=== PATIENT | male | born 1935 | race Caucasian/White ===

== ENCOUNTER → 2019-05-13 09:13 | Outpatient (REF) | payer OTHER, SELFPAY | LOC: ANHLAB 09:13 | PROVIDERS: PCP Emergency Medicine; Visit Provider Nurse Practitioner | DX: C44.329 Squamous cell carcinoma of skin of other parts of face (principal) | CPT/HCPCS: 88305; 88331 ==

== ENCOUNTER 2019-11-15 01:20 | Outpatient (CLI) | payer OTHER, SELFPAY ==
[2019-11-15 19:18] LABS: SARS-CoV-2 RNA PCR Negative
== END 2019-11-15 01:21 | disposition home or self-care (01) ==
LOC: ANHCOVIDDT 01:20
PROVIDERS: PCP Emergency Medicine; Visit Provider Internal Medicine Gastroenterology
DX: Z01.812 Encounter for preprocedural laboratory examination (principal); Z20.828 Contact with and (suspected) exposure to other viral communicable diseases
CPT/HCPCS: 87635; C9803; U0003

== ENCOUNTER 2019-11-18 02:03 | Day surgery (SDC) | payer OTHER, SELFPAY ==
[2019-11-14 12:39] VITALS: BMI 30.2
[2019-11-18 08:14] VITALS: BP 122/63; PULSE 82; RESP 20; TEMP 36.5; O2SAT 98
[2019-11-18] MEDS: LACTATED RINGERS 1,000 ML 150 ML IV CONT (08:24)
--- NOTE | 2019-11-18 08:27 | PM.HPGS ---
History of Present Illness History of Present Illness Consent: Risks, benefits, and alternatives have been discussed and questions answered. Patient agrees to proceed with procedure. Chief complaint: Dysphagia Narrative: Trell Amin is a 84 year old W male Referred for EGD and possible esophageal dilatation secondary to a 2 year history of solid food dysphagia. Patient's states this occurs approximately about 2/3 of the time when he is eating. He points to the cervical region and also to the midesophageal region. Patient denies any heartburn indigestion. However he does take Prilosec 20 mg daily he has been on this for a long time but does not recall why they placed him on this. He denies any significant weight loss no fever chills or sweats. No coughing no history of pneumonia. Patient denies smoking no alcohol. No family history of esophageal cancer. [facility] Past Medical History Medical History BPH (benign prostatic hyperplasia) Cataracts, bilateral Diverticulosis Gall bladder disease GERD (gastroesophageal reflux disease) H/O: HTN (hypertension) History of inguinal hernia Hx of hemorrhoids Hypercholesteremia Hypertension Neuropathy Parathyroid adenoma Peripheral neuropathy Tremor Ulcer Surgical History Surgical History History of appendectomy History of cholecystectomy History of colonoscopy History of hernia repair History of inguinal hernia repair x3. History of parathyroid surgery History of throat surgery History of tonsillectomy S/P TURP Family History Family History Sibling Family history of cardiovascular disease Mother Cerebrovascular accident, Onset Age: 83 Father Family history of malignant neoplasm, Onset Age: 76 Family history of malignant neoplasm of bone, Onset Age: 76 Social History Social History Smoking status: Never smoker Alcohol intake: never Gender identity (if verbalized by the patient): Male Meds Home Medications and Allergies Home Medications Medication Instructions Recorded Confirmed Type aspirin 81 mg PO DAILY 03/02/19 11/14/19 History amlodipine 10 mg tablet 10 mg PO DAILY #90 tablet 08/12/19 Rx cyanocobalamin (vitamin B-12) 1,000 mcg PO DAILY 09/03/19 11/14/19 History 1,000 mcg tablet mirabegron 50 mg tablet,extended 50 mg PO DAILY 09/03/19 History release 24 hr omeprazole 20 mg capsule,delayed 20 mg PO AC 09/03/19 History release tamsulosin 0.4 mg capsule 0.4 mg PO DAILY 09/03/19 History amoxicillin 875 mg-potassium 1 tablet PO BID #20 tablet 09/04/19 11/14/19 Rx clavulanate 125 mg tablet primidone 50 mg tablet 100 mg PO BID 09/04/19 History losartan 100 mg PO DAILY 11/14/19 11/14/19 History Allergies Allergy/AdvReac Type Severity Reaction Status Date / Time No Known Allergies Allergy Verified 11/18/19 08:12 Vital Signs Vital Signs - 24 hr 11/18/19 08:14 Temperature 36.5 C Pulse Rate 82 Respiratory Rate 20 Blood Pressure 122/63 Pulse Oximetry 98 Exam Const: Orientation/consciousness: patient oriented x3 Resp: Auscultation: clear to auscultation bilaterally Cardio: Rate: regular rate Rhythm: regular rhythm Heart sounds: no murmurs GI: GI Palp: Yes Soft to palpation, No Tenderness to palpation present (GI), Yes No hepatosplenomegaly present and No Palpable mass present Auscultation: normal bowel sounds Neuro: General: patient oriented x3 and no focal motor deficits Extrem: General: no pedal edema Assessment and Plan Additional Plan EGD with possible esophageal dilatation for evaluation of dysphagia
--- NOTE | 2019-11-18 08:27 | WPDANESEPPF ---
Anes - Initial Pre Proc Eval Procedure: Operation Date: 11/18/19 09:00 Proposed Procedures p Esophagogastroduodenoscopy - Amador Morales MD Date/Time: 11/18/19 08:27 Surgeon: Amador Morales MD Pre Op Diagnosis: Dysphagia Patient Data Age: 84 Gender: M Height: 5 ft 8 in Weight: 96.8 kg Last Vital Signs Temp 97.7 F 11/18/19 08:14 Pulse 82 11/18/19 08:14 Resp 20 11/18/19 08:14 BP 122/63 11/18/19 08:14 Pulse Ox 98 11/18/19 08:14 Allergies Allergy/AdvReac Type Severity Reaction Status Date / Time No Known Allergies Allergy Verified 11/18/19 08:12 Home Medications Medication Instructions Recorded Confirmed Type aspirin 81 mg PO DAILY 03/02/19 11/14/19 History amlodipine 10 mg tablet 10 mg PO DAILY #90 tablet 08/12/19 Rx cyanocobalamin (vitamin B-12) 1,000 mcg PO DAILY 09/03/19 11/14/19 History 1,000 mcg tablet mirabegron 50 mg tablet,extended 50 mg PO DAILY 09/03/19 History release 24 hr omeprazole 20 mg capsule,delayed 20 mg PO AC 09/03/19 History release tamsulosin 0.4 mg capsule 0.4 mg PO DAILY 09/03/19 History amoxicillin 875 mg-potassium 1 tablet PO BID #20 tablet 09/04/19 11/14/19 Rx clavulanate 125 mg tablet primidone 50 mg tablet 100 mg PO BID 09/04/19 History losartan 100 mg PO DAILY 11/14/19 11/14/19 History Patient hx anesthesia problems: none Family hx anesthesia problems: none PMFSH Past Medical History Medical History BPH (benign prostatic hyperplasia) Cataracts, bilateral Diverticulosis Gall bladder disease GERD (gastroesophageal reflux disease) H/O: HTN (hypertension) History of inguinal hernia Hx of hemorrhoids Hypercholesteremia Hypertension Neuropathy Parathyroid adenoma Peripheral neuropathy Tremor Ulcer Surgical History Surgical History History of appendectomy History of cholecystectomy History of colonoscopy History of hernia repair History of inguinal hernia repair x3. History of parathyroid surgery History of throat surgery History of tonsillectomy S/P TURP Family History Family History Sibling Family history of cardiovascular disease Mother Cerebrovascular accident, Onset Age: 83 Father Family history of malignant neoplasm, Onset Age: 76 Family history of malignant neoplasm of bone, Onset Age: 76 Social History Social History Smoking status: Never smoker Alcohol intake: never Gender identity (if verbalized by the patient): Male Anes - Eval Final PreProcedure Day of Procedure 11/18/19 08:27 Patient weight: obese Heart: regular rate and rhythm Lungs: clear to auscultation Airway: Mallampati scale class III Neurological: alert and oriented Last oral intake: >/= 8 hours ASA classification: III Emergent: no Anesthetic plan: proceed Anesthesia type and monitoring: general GIVS and standard monitoring Informed Consent: The patient's anesthetic plan and its attendant risks and benefits were discussed with the patient/family/POA. Questions were solicited and answers provided to the satisfaction of the patient/family/POA.
[2019-11-18 08:40] VITALS: BP 138/90; PULSE 90; RESP 31; O2SAT 95
[2019-11-18 08:50] VITALS: BP 125/76; PULSE 90; RESP 19; O2SAT 95
[2019-11-18 09:00] VITALS: BP 109/68; PULSE 71; RESP 12; O2SAT 100
== END 2019-11-18 09:27 | disposition home or self-care (01) ==
PROVIDERS: PCP Emergency Medicine; Visit Provider Internal Medicine Gastroenterology
PROC: 0DJ08ZZ Inspection of Upper Intestinal Tract, Via Natural or Artificial Opening Endoscopic (ICD-10-PCS; CPT 43235; principal; 2019-11-18 09:00)
DX: R13.19 Other dysphagia (principal); K21.0 Gastro-esophageal reflux disease with esophagitis; K22.2 Esophageal obstruction; K44.9 Diaphragmatic hernia without obstruction or gangrene; I10 Essential (primary) hypertension; E78.00 Pure hypercholesterolemia, unspecified; N40.0 Benign prostatic hyperplasia without lower urinary tract symptoms; G62.9 Polyneuropathy, unspecified
CPT/HCPCS: 43239; 88305; J2001; J2704; J7120

== ENCOUNTER 2020-01-07 00:14 | Outpatient (CLI) | payer OTHER, SELFPAY ==
[2020-01-07 19:01] LABS: SARS-CoV-2 RNA PCR Negative
== END 2020-01-07 00:15 | disposition home or self-care (01) ==
LOC: ANHCOVIDDT 00:14
PROVIDERS: PCP Emergency Medicine; Visit Provider Internal Medicine Gastroenterology
DX: Z01.812 Encounter for preprocedural laboratory examination (principal); Z20.828 Contact with and (suspected) exposure to other viral communicable diseases
CPT/HCPCS: 87635; C9803; U0003

== ENCOUNTER 2020-01-09 00:02 | Day surgery (SDC) | payer OTHER, SELFPAY ==
[2020-01-02 13:14] VITALS: BMI 30.2
--- NOTE | 2020-01-09 07:25 | PM.HPGS ---
History of Present Illness History of Present Illness Consent: Risks, benefits, and alternatives have been discussed and questions answered. Patient agrees to proceed with procedure. Chief complaint: esophageal ulcer Narrative: Trell Amin is a 84 year old W male undergoing EGD with esophageal dilatation. Patient had a recent gastroscopy several months ago was found to have grade 4 ulcerative esophagitis esophageal stricture but this was not dilated secondary to the ulceration. He has been treated with PPI therapy is improved still has this intermittent solid food dysphagia. He is undergoing repeat EGD with probable dilatation PMFSH Past Medical History Medical History BPH (benign prostatic hyperplasia) Cataracts, bilateral Diverticulosis Gall bladder disease GERD (gastroesophageal reflux disease) H/O: HTN (hypertension) History of inguinal hernia Hx of hemorrhoids Hypercholesteremia Hypertension Neuropathy Parathyroid adenoma Peripheral neuropathy Squamous cell carcinoma of skin of left cheek Tremor Ulcer Surgical History Surgical History History of appendectomy History of cholecystectomy History of colonoscopy History of hernia repair History of inguinal hernia repair x3. History of parathyroid surgery History of throat surgery History of tonsillectomy S/P TURP Family History Family History Sibling Family history of cardiovascular disease Mother Cerebrovascular accident, Onset Age: 83 Father Family history of malignant neoplasm, Onset Age: 76 Family history of malignant neoplasm of bone, Onset Age: 76 Social History Social History Smoking status: Never smoker Alcohol intake: never Living arrangements: with family Gender identity (if verbalized by the patient): Male Spiritual care concerns: No Meds Home Medications and Allergies Home Medications Medication Instructions Recorded Confirmed Type aspirin 81 mg PO DAILY 03/02/19 01/02/20 History amlodipine 10 mg tablet 10 mg PO DAILY #90 tablet 08/12/19 01/02/20 Rx omeprazole 20 mg capsule,delayed 20 mg PO AC 09/03/19 01/02/20 History release tamsulosin 0.4 mg capsule 0.4 mg PO DAILY 09/03/19 01/02/20 History primidone 50 mg tablet 100 mg PO BID 09/04/19 01/02/20 History triamcinolone acetonide 0.1 % 1 applic TOPICAL TID #454 gm 11/20/19 01/02/20 Rx topical ointment losartan 100 mg tablet See Rx Instructions PO DAILY #90 12/24/19 01/02/20 Rx tablet Allergies Allergy/AdvReac Type Severity Reaction Status Date / Time No Known Allergies Allergy Verified 01/02/20 13:14 Exam Const: Orientation/consciousness: patient oriented x3 Resp: Auscultation: clear to auscultation bilaterally Cardio: Rate: regular rate Rhythm: regular rhythm Heart sounds: no murmurs GI: GI Palp: Yes Soft to palpation, No Tenderness to palpation present (GI), Yes No hepatosplenomegaly present and No Palpable mass present Auscultation: normal bowel sounds Neuro: General: patient oriented x3 and no focal motor deficits Extrem: General: no pedal edema Assessment and Plan Additional Plan EGD with probable esophageal dilatation
[2020-01-09 07:29] VITALS: BP 152/69; PULSE 87; RESP 18; TEMP 36.5; O2SAT 100; BMI 32.3
--- NOTE | 2020-01-09 07:29 | WPDANESEPPF ---
Anes - Initial Pre Proc Eval Procedure: Operation Date: 01/09/20 08:00 Proposed Procedures p Esophagogastroduodenoscopy - Amador Morales MD Date/Time: 01/09/20 07:29 Surgeon: Amador Morales MD Pre Op Diagnosis: esophageal ulcer Patient Data Age: 84 Gender: M Height: 5 ft 8 in Weight: 90 kg Allergies Allergy/AdvReac Type Severity Reaction Status Date / Time No Known Allergies Allergy Verified 01/09/20 07:28 Home Medications Medication Instructions Recorded Confirmed Type aspirin 81 mg PO DAILY 03/02/19 01/02/20 History amlodipine 10 mg tablet 10 mg PO DAILY #90 tablet 08/12/19 01/02/20 Rx omeprazole 20 mg capsule,delayed 20 mg PO AC 09/03/19 01/02/20 History release tamsulosin 0.4 mg capsule 0.4 mg PO DAILY 09/03/19 01/02/20 History primidone 50 mg tablet 100 mg PO BID 09/04/19 01/02/20 History triamcinolone acetonide 0.1 % 1 applic TOPICAL TID #454 gm 11/20/19 01/02/20 Rx topical ointment losartan 100 mg tablet See Rx Instructions PO DAILY #90 12/24/19 01/02/20 Rx tablet Patient hx anesthesia problems: none Family hx anesthesia problems: none PMFSH Past Medical History Medical History BPH (benign prostatic hyperplasia) Cataracts, bilateral Diverticulosis Gall bladder disease GERD (gastroesophageal reflux disease) H/O: HTN (hypertension) History of inguinal hernia Hx of hemorrhoids Hypercholesteremia Hypertension Neuropathy Parathyroid adenoma Peripheral neuropathy Squamous cell carcinoma of skin of left cheek Tremor Ulcer Surgical History Surgical History History of appendectomy History of cholecystectomy History of colonoscopy History of hernia repair History of inguinal hernia repair x3. History of parathyroid surgery History of throat surgery History of tonsillectomy S/P TURP Family History Family History Sibling Family history of cardiovascular disease Mother Cerebrovascular accident, Onset Age: 83 Father Family history of malignant neoplasm, Onset Age: 76 Family history of malignant neoplasm of bone, Onset Age: 76 Social History Social History Smoking status: Never smoker Alcohol intake: never Living arrangements: with family Gender identity (if verbalized by the patient): Male Spiritual care concerns: No Anes - Eval Final PreProcedure Day of Procedure 01/09/20 07:29 Patient weight: obese Heart: regular rate and rhythm Lungs: clear to auscultation Airway: Mallampati scale class II Neurological: alert and oriented Last oral intake: >/= 8 hours ASA classification: III Emergent: no Anesthetic plan: proceed Anesthesia type and monitoring: general GIVS and standard monitoring Informed Consent: The patient's anesthetic plan and its attendant risks and benefits were discussed with the patient/family/POA. Questions were solicited and answers provided to the satisfaction of the patient/family/POA.
[2020-01-09] MEDS: LACTATED RINGERS 1,000 ML 150 ML IV CONT (07:41)
[2020-01-09 08:16] VITALS: BP 112/68; PULSE 85; RESP 22; O2SAT 95
[2020-01-09 08:26] VITALS: BP 135/68; PULSE 88; RESP 19; O2SAT 96
[2020-01-09 08:36] VITALS: BP 127/76; PULSE 78; RESP 17; O2SAT 95
== END 2020-01-09 08:56 | disposition home or self-care (01) ==
PROVIDERS: PCP Emergency Medicine; Visit Provider Internal Medicine Gastroenterology
PROC: 0DJ08ZZ Inspection of Upper Intestinal Tract, Via Natural or Artificial Opening Endoscopic (ICD-10-PCS; CPT 43235; principal; 2020-01-09 08:00)
DX: K22.2 Esophageal obstruction (principal); K44.9 Diaphragmatic hernia without obstruction or gangrene; K31.9 Disease of stomach and duodenum, unspecified; I10 Essential (primary) hypertension; N40.0 Benign prostatic hyperplasia without lower urinary tract symptoms; K21.9 Gastro-esophageal reflux disease without esophagitis; E78.00 Pure hypercholesterolemia, unspecified; G62.9 Polyneuropathy, unspecified; Z79.82 Long term (current) use of aspirin; E66.9 Obesity, unspecified; Z68.32 Body mass index [BMI] 32.0-32.9, adult
CPT/HCPCS: 43249; 43239; 88305; C1726; J2704; J7120

== ENCOUNTER 2021-08-06 19:24 | Emergency (ER) | payer OTHER, SELFPAY ==
--- NOTE | ~2021-08-06 | XR_ITS ---
XR foot RT min 3V DATE: 08/07/2021 00:15 INDICATION: Right foot pain TECHNIQUE: 4 views COMPARISON: None FINDINGS: There is diffuse osteopenia. 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 Mild posterior plantar calcaneal enthesopathy. Hammertoe deformities. No fracture, dislocation, periosteal reaction or bone destruction is detected. Anterior and posterior tibial, dorsalis pedis and metatarsal artery calcifications are noted. IMPRESSION: Osteopenia Tibiotalar osteoarthritis Calcaneal enthesopathy Arterial calcifications including metatarsal artery calcifications, suggesting diabetes Reviewed, dictated and finalized at location A.
[2021-08-06 19:27] VITALS: BP 151/77; PULSE 98; RESP 20; TEMP 36.7; O2SAT 97
[2021-08-06 23:02] VITALS: BP 143/79; PULSE 88; RESP 17; O2SAT 96
[2021-08-07 00:37] VITALS: BP 136/71; PULSE 81; RESP 17; O2SAT 95
[2021-08-07 00:39] LABS: Basophils Absolute Auto 0.1 K/mm3 (0.0-0.1); Basophils Percent Auto 0.5 % (0.2-1.2); Eosinophils Absolute Auto 0.1 K/mm3 (0-0.3); Eosinophils Percent Auto 0.9 % (0-4.4); Hematocrit 45.6 % (42.0-52.0); Hemoglobin 15.3 g/dL (14.0-18.0); Immature Granulocyte Absolute 0.05 K/mm3 (0.00-0.031); Immature Granulocyte Percent A 0.4 % (0-0.5); Lymphocytes Absolute Auto 1.57 K/mm3 (0.9-3.2); Lymphocytes Percent Auto 12.2 % (18.3-44.2); Mean Corpuscular HGB Conc 33.6 g/dl (32-36); Mean Corpuscular Hemoglobin 32.1 pg (26-34); Mean Corpuscular Volume 95.8 fl (80-100); Mean Platelet Volume 9.3 fl (7.4-10.4); Monocytes Absolute Auto 1.1 K/mm3 (0.1-0.6); Monocytes Percent Auto 8.6 % (2.6-8.5); Neutrophils Percent Auto 77.4 % (45.5-73.1); Platelet Count Result 293 k/mm3 (150-375); Red Blood Count 4.76 M/mm3 (4.6-6.20); Red Cell Distribution Width 13.4 % (11.5-14.5); White Blood Count 12.9 K/mm3 (4.5-10.0)
[2021-08-07 00:50] LABS: Alanine Aminotransferase 33 U/L (6-50); Albumin Level 4.2 g/dL (3.5-5.1); Alkaline Phosphatase 69 U/L (38-126); Anion Gap 10 mmol/L (8-16); Aspartate Amino Transferase 29 U/L (17-59); Blood Urea Nitrogen 16 mg/dL (9-20); Calcium 8.5 mg/dL (8.4-10.2); Carbon Dioxide 21 mmol/L (22-30); Chloride 107 mmol/L (98-107); Estimated CRCL calculation 64 ml/min; Estimated Glomerular Filt Rate > 60; Glucose 117 mg/dL (65-110); Potassium 4.2 mmol/L (3.4-5.0); Sodium 138 mmol/L (137-145)
--- NOTE | 2021-08-07 00:54 | ED.EXTPRO ---
HPI - Extremity Problem General Chief complaint: Extremity Problem,Nontraumatic Stated complaint: ohter Time Seen by Provider: 08/06/21 22:52 Source: patient Mode of arrival: ambulatory History of Present Illness HPI Narrative: 85 year old male presents today with complaints of redness and swelling to right foot that started about 3 days ago. Patient denies fevers, chills, or body aches. States possiblity of hitting his foot a couple days ago. He does have a history of neuropathy. Related Data Home Medications Medication Instructions Recorded Confirmed primidone 50 mg tablet 100 mg PO BID 09/04/19 03/03/21 tamsulosin 0.4 mg capsule 0.4 mg PO QHS 09/02/20 03/03/21 Allergies Allergy/AdvReac Type Severity Reaction Status Date / Time No Known Allergies Allergy Verified 01/09/20 07:28 Review of Systems Review of Systems: CONSTITUTIONAL: Denies fever, chills, or sweats. EYES: Denies visual changes, redness, or discharge. ENT: Denies rhinorrhea, congestion, sore throat, or otalgia. CARDIOVASCULAR: Denies chest pain, palpitations, or edema. RESPIRATORY: Denies cough or dyspnea. GASTROINTESTINAL: Denies abdominal pain, nausea, vomiting, or diarrhea. GENITOURINARY: Denies dysuria or hematuria. SKIN: Redness to right foot with swelling. Denies rash or itching. MUSCULOSKELETAL: Denies back pain, joint pain, or myalgia. NEUROLOGIC: Denies headache, numbness, dizziness, or weakness. PSYCHIATRIC: Denies anxiety or depression. [facility] Past Medical History Medical History BPH (benign prostatic hyperplasia) Cataracts, bilateral Diverticulosis Gall bladder disease GERD (gastroesophageal reflux disease) H/O: HTN (hypertension) History of inguinal hernia Hx of hemorrhoids Hypercholesteremia Hypertension Neuropathy Parathyroid adenoma Peripheral neuropathy Squamous cell carcinoma of skin of left cheek Tremor Ulcer Surgical History Surgical History History of appendectomy History of cholecystectomy History of colonoscopy History of hernia repair History of inguinal hernia repair x3. History of parathyroid surgery History of throat surgery History of tonsillectomy S/P TURP Family History Family History Sibling Family history of cardiovascular disease Mother Cerebrovascular accident, Onset Age: 83 Father Family history of malignant neoplasm, Onset Age: 76 Family history of malignant neoplasm of bone, Onset Age: 76 Sibling , 93 Alzheimer disease Social History Social History Social History: Patient does not drink caffeine or energy drinks. Smoking status: Never smoker Second hand tobacco smoke exposure: No Alcohol intake: never Substance use: never Substance use type: does not use Additional living arrangements comments: Patient is Gender identity (if verbalized by the patient): Male Sexual Orientation (if Verbalized by the Patient): Straight or Heterosexual Spiritual care concerns: No Exam Narrative: GENERAL: Well-appearing, well-nourished, and in no acute distress. HEAD: Normocephalic, atraumatic. EYES: PERRLA and EOMI. ENT: Nares clear, no rhinorrhea or epistaxis. Mucous membranes moist. Oropharynx without tonsillar hypertrophy exudate or other lesions. Bilateral TMs pearly alfaro nonbulging NECK: Supple. No adenopathy or masses. No carotid bruits or JVD CHEST: Clear to auscultation. No respiratory distress. No wheezes rales or rhonchi HEART: Regular rate and rhythm. No murmur heard. Normal peripheral pulses. ABDOMEN: Soft, nontender, nondistended, normal active bowel sounds. EXTREMITIES: Erythema to dorsal aspect of right foot with edema. Area is hot to touch, skin is intact. Normal range of motion. No edema. SKI
[2021-08-07] MEDS: HYDROcodone/acetaminophen (*CRX) 5-325 MG TABLET 1 TAB PO (01:00)
[2021-08-07 02:16] VITALS: BP 128/66; PULSE 79; RESP 18; TEMP 37; O2SAT 95
== END 2021-08-07 02:17 | disposition home or self-care (01) ==
PROVIDERS: Emergency Provider Nurse Practitioner Family; PCP Emergency Medicine
DX: L03.115 Cellulitis of right lower limb (principal); I10 Essential (primary) hypertension; E78.00 Pure hypercholesterolemia, unspecified; G62.9 Polyneuropathy, unspecified; K21.9 Gastro-esophageal reflux disease without esophagitis; N40.0 Benign prostatic hyperplasia without lower urinary tract symptoms; Z85.828 Personal history of other malignant neoplasm of skin
CPT/HCPCS: 36415; 73630; 80053; 85025; 96365; 99284; A9270; J0696

== ENCOUNTER 2022-05-27 05:44 | Inpatient (IN) | payer OTHER, SELFPAY ==
[2022-05-27] VITALS (15 sets, daily range): BP systolic 103–126; BP diastolic 55–77; PULSE 72–101; RESP 14–24; TEMP 35.5–36.3; O2SAT 90–100
--- NOTE | 2022-05-27 | ECG_ITS ---
Measurements Intervals [place] Rate: 73 P: 15 MD: 240 QRS: 126 QRSD: 152 T: 30 QT: 452 QTc: 499 Interpretive Statements SINUS RHYTHM WITH FIRST DEGREE AV BLOCK RIGHT BUNDLE BRANCH BLOCK LEFT POSTERIOR FASCICULAR BLOCK CONSIDER INFERIOR INFARCT, AGE INDETERMINATE ANTERIOR ST ELEVATION MYOCARDIAL INJURY- ACUTE BASELINE WANDER- V4-V6 ABNORMAL ECG NO PREVIOUS ECG AVAILABLE FOR COMPARISON Electronically Signed On 05-27-2022 6:39:11 [employer] by Manuel Tierney D.O.
--- NOTE | 2022-05-27 | ECHO_ITS ---
Patient Info Name: Trell Amin Age: 86 years : 1935 Gender: Male Ht: 68 in Wt: 239 lbs BSA: 2.32 m2 HR: 89 bpm BP: 118 / 77 mmHg Heart Rhythm: Sinus Rhythm Technical Quality: Fair Exam Date: 05/27/2022 9:53 AM Exam Location: [facility] Patient Status: Inpatient Admit Date: 05/27/2022 Staff Ordering Physician: Scott Gan MD Digital Marketing Analyst: Roshni Brand RDCS Attending Provider: Scott Gan MD Referring Physician: Malik MCCRARY; Exam Type: CA echo dop color flow w con Study Info Indications - STEMI Complete two-dimensional, color flow and Doppler transthoracic echocardiogram is performed with contrast to opacify the left ventricle and to improve the deliniation of the left ventricle endocardial borders. Contrast/Agitated Saline Contrast/Ag. Saline: Definity Amount: 2.00 ml Administered By: Roshni Brand [facility] Existing IV Access: Yes IV Access Condition: patent with no signs of infiltration Summary 1. Mild LV enlargement with akinesis of the majority of the anterior wall, antral septal segment and apex. 2. Global LV ejection fraction 30%. 3. Definity contrast used to improve visualization. 4. Mildly enlarged left atrium. 5. No mitral regurgitation, normal-appearing aortic valve. Left Ventricle Left ventricular chamber dimension is mildly enlarged. Left ventricular systolic function is moderately reduced, estimated at 30-35%. The left ventricular diastolic function is grade I diastolic dysfunction. Right Ventricle Right ventricular chamber dimension is normal. Right ventricular systolic function is normal. Left Atria Left atrial chamber dimension is moderately enlarged. Right Atria Right atrial chamber dimension is normal. Aortic Valve The aortic valve is normal. Pulmonic Valve The pulmonic valve is not well visualized. Mitral Valve The mitral valve has normal leaflets. There is no mitral valve regurgitation. Tricuspid Valve The tricuspid valve leaflets are normal. There is mild tricuspid valve regurgitation. Pericardium/Pleural The pericardium appears normal. Aorta The aortic root size at the sinus of Valsalva is normal. Left Ventricular Outflow Tract Name Value Normal LVOT 2D LVOT Diameter 2.07 cm LVOT Doppler LVOT Peak Gradient 4 mmHg LVOT Mean Gradient 2 mmHg LVOT VTI 18.90 cm LVOT VTI/AV VTI Ratio 0.84 LVOT Stroke Volume 63.79 ml LVOT CO 15.12 l/min LVOT CI 6.51 L/min/m2 Pulmonic Valve Name Value Normal PV Doppler PV Peak Gradient 7 mmHg Mitral Valve
--- NOTE | ~2022-05-27 | XR_ITS ---
Portable chest x-ray Comparison: None Clinical History: STEMI Findings: Mild central congestive change and possible minimal interstitial edema. Cardiomediastinal silhouette is mildly prominent. Bones and soft tissues are unremarkable. Impression: Mild central congestive changes with possible minimal interstitial edema. Reviewed, dictated and finalized at [facility]. ION EXAMINER Impression: Mild central congestive changes with possible minimal interstitial edema.
--- NOTE | 2022-05-27 05:56 | ED.GENADULT ---
HPI - General Adult General Chief complaint: Chest Pain Stated complaint: chest pain Time Seen by Provider: 05/27/22 05:54 History of Present Illness HPI narrative: Patient 86-year-old gentleman who presents the emergency department with chief complaint of chest pain patient reports that this evening he started having pain in the midportion of his chest described as a tightness sensation and then reports that he had some dry heaves. Patient states that has no prior history of cardiac disease and was hoping the pain would resolve. Related Data Home Medications Medication Instructions Recorded Confirmed tamsulosin 0.4 mg capsule 0.4 mg PO QHS 09/02/20 03/03/21 Allergies Allergy/AdvReac Type Severity Reaction Status Date / Time No Known Allergies Allergy Verified 03/09/22 13:48 Review of Systems Review of Systems: A 10 system review of systems was completed on the patient and is negative except for what is stated in the HPI. Nursing and ancillary documentation was reviewed. [facility] Past Medical History Medical History (Updated 05/27/22 @ 06:00 by Davey Valles MD) BPH (benign prostatic hyperplasia) Cataracts, bilateral Diverticulosis Gall bladder disease GERD (gastroesophageal reflux disease) H/O: HTN (hypertension) History of inguinal hernia Hx of hemorrhoids Hypercholesteremia Hypertension Neuropathy Parathyroid adenoma Peripheral neuropathy Squamous cell carcinoma of skin of left cheek Tremor Ulcer Surgical History Surgical History History of appendectomy History of cholecystectomy History of colonoscopy History of hernia repair History of inguinal hernia repair x3. History of parathyroid surgery History of throat surgery History of tonsillectomy S/P TURP Family History Family History Sibling Family history of cardiovascular disease Mother Cerebrovascular accident, Onset Age: 83 Father Family history of malignant neoplasm, Onset Age: 76 Family history of malignant neoplasm of bone, Onset Age: 76 Sibling , 93 Alzheimer disease Social History Social History Social History: Patient does not drink caffeine or energy drinks. Smoking status: Never smoker Second hand tobacco smoke exposure: No Alcohol intake: never Substance use: never Substance use type: does not use Living arrangements: with family Additional living arrangements comments: Patient is Occupation/Education: retired Gender identity (if verbalized by the patient): Male Sexual Orientation (if Verbalized by the Patient): Straight or Heterosexual Spiritual care concerns: No Exam Narrative: GENERAL: Well-appearing, well-nourished, and in no acute distress. HEAD: Normocephalic, atraumatic. EYES: PERRLA and EOMI. ENT: Nares clear, no rhinorrhea or epistaxis. Mucous membranes moist. NECK: Supple. CHEST: Clear to auscultation. No respiratory distress. HEART: Regular rate and rhythm. No murmur heard. Normal peripheral pulses. ABDOMEN: Soft, nontender, nondistended, normal active bowel sounds. EXTREMITIES: Normal range of motion. No edema. SKIN: Warm, dry, no rash. NEURO: No focal deficits. Alert and oriented x3. PSYCH: Normal mood and affect. Course Vital Signs Vital signs: Vital Signs Pulse Rate 75 05/27/22 05:46 Respiratory Rate 23 H 05/27/22 05:46 Blood Pressure 126/66 05/27/22 05:46 Pulse Oximetry 100 05/27/22 05:46 Oxygen Delivery Room Air 05/27/22 05:46 Pulse Rate 75 05/27/22 05:46 Respiratory Rate 23 H 05/27/22 05:46 Blood Pressure 126/66 05/27/22 05:46 Pulse Oximetry 100 05/27/22 05:46 Oxygen Delivery Room Air 05/27/22 05:46 Medical Decision Making MDM Narrative Medical decision making narrative: EKG is
[2022-05-27] MEDS: ONDANSETRON INJ 4 MG/2 ML VIAL IV PUSH (06:02)
[2022-05-27] MEDS: HEPARIN SODIUM 5,000 UNITS/ML VIAL 4000 UNITS IV PUSH (06:02)
[2022-05-27] MEDS: TICAGRELOR 90 MG TABLET 180 MG PO (06:03)
[2022-05-27] MEDS: MORPHINE SULFATE (*CRX) 2 MG/ML INJ IV PUSH ×3 (06:15→08:31)
[2022-05-27 06:26] LABS: Basophils Absolute Auto 0.1 K/mm3 (0.0-0.1); Basophils Percent Auto 0.8 % (0.2-1.2); Eosinophils Absolute Auto 0.2 K/mm3 (0-0.3); Hematocrit 50.2 % (42.0-52.0); Hemoglobin 17.1 g/dL (14.0-18.0); Immature Granulocyte Absolute 0.04 K/mm3 (0.00-0.031); Immature Granulocyte Percent A 0.4 % (0-0.5); Lymphocytes Absolute Auto 1.94 K/mm3 (0.9-3.2); Mean Corpuscular HGB Conc 34.1 g/dl (32-36); Mean Corpuscular Hemoglobin 32.4 pg (26-34); Mean Corpuscular Volume 95.3 fl (80-100); Mean Platelet Volume 10.2 fl (7.4-10.4); Monocytes Absolute Auto 0.6 K/mm3 (0.1-0.6); Monocytes Percent Auto 6.5 % (2.6-8.5); Neutrophils Absolute Auto 6.8 K/mm3 (1.3-6.7); Neutrophils Percent Auto 70.3 % (45.5-73.1); Platelet Count Result 300 k/mm3 (150-375); Red Blood Count 5.27 M/mm3 (4.6-6.20); White Blood Count 9.7 K/mm3 (4.5-10.0)
[2022-05-27 06:30] LABS: INR 1.1; Prothrombin Time 13.4 Seconds (11.1-14.7)
[2022-05-27 06:31] LABS: Alanine Aminotransferase 47 U/L (6-50); Albumin Level 4.5 g/dL (3.5-5.1); Alkaline Phosphatase 87 U/L (38-126); Anion Gap 11 mmol/L (8-16); Aspartate Amino Transferase 37 U/L (17-59); Bilirubin,Total 0.8 mg/dL (0.2-1.3); Blood Urea Nitrogen 12 mg/dL (9-20); Calcium 8.9 mg/dL (8.4-10.2); Carbon Dioxide 22 mmol/L (22-30); Chloride 104 mmol/L (98-107); Estimated CRCL calculation 68 ml/min; Estimated Glomerular Filt Rate > 60; Glucose 208 mg/dL (65-110); Lipase 28 U/L (23-300); Partial Thromboplastin Time 26.3 SECONDS (22.3-36.8); Potassium 3.2 mmol/L (3.4-5.0); Sodium 137 mmol/L (137-145)
[2022-05-27 06:32] LABS: Cholesterol 195 mg/dL (0-200); HDL Direct 53 mg/dL; Triglycerides 191 mg/dL (<150)
[2022-05-27 06:41] LABS: Troponin I 0.034 ng/mL (0.000-0.034)
[2022-05-27 06:42] LABS: LDL Cholesterol Direct 100 mg/dL
--- NOTE | 2022-05-27 07:59 | ECG_ITS ---
Measurements Intervals [place] Rate: 83 P: 229 ME: 145 QRS: -83 QRSD: 190 T: 34 QT: 488 QTc: 574 Interpretive Statements SINUS RHYTHM WITH FIRST DEGREE AV BLOCK ATRIAL PREMATURE COMPLEXES RIGHT BUNDLE BRANCH BLOCK ANTERIOR ST ELEVATION MYOCARDIAL INFARCT, ACUTE HIGH LATERAL ST EELVATION MYOCARDIAL INFARCT, ACUTE COMPARED TO ECG 05/27/2022 05:47:10 NO SIGNIFICANT CHANGES Electronically Signed On 05-27-2022 8:47:45 SENIOR MAINFRAME PROGRAMMER ANALYST by Manuel Tierney D.O.
[2022-05-27] MEDS: NITROGLYCERIN/D5W 200 MCG/ML 50 MG/250 ML BTL IV CONT (08:23)
--- NOTE | 2022-05-27 08:26 | ADMGEN ---
This patient, Trell Amin, was admitted to Intensive Care Unit-6 at 0815. Patient/family oriented to hospital policies and general routines including ID bracelet, bed and alarms, visiting hours, pain management, procedures, bathroom and other care routines, personal items, smoking policy, room service/diet, and visiting hours. Information on how to activate the Rapid Response Team has been discussed. Patient/Family are encouraged to report perceived risks to care and to ask questions if they do not understand what they are told or what they should do.
--- NOTE | 2022-05-27 08:35 | WPDCNINT ---
Assessment and Plan Assessment and plan (1) Acute ST elevation myocardial infarction: Code(s): I21.3 - ST elevation (STEMI) myocardial infarction of unspecified site Status: Acute Assessment and Plan: acute anterior STEMI status post PCI with sub optimal results patient still having chest pain nitroglycerin infusion and p.r.n. morphine for pain aspirin Brilinta Crestor Coreg and was started heparin infusion cardiology is going to transfer patient to tertiary facility for high risk PCI. patient has a bed at [facility] and will be transferred as soon as possible. arterial sheath will be left in place for now Defer echocardiogram ICU telemetry monitoring (2) Dementia: Qualifiers: Alzheimer's disease onset: other onset Dementia behavioral disturbance: without behavioral disturbance Dementia type: Alzheimer's disease Qualified Code(s): G30.8 - Other Alzheimer's disease; F02.80 - Dementia in other diseases classified elsewhere without behavioral disturbance Code(s): F03.90 - Unspecified dementia, unspecified severity, without behavioral disturbance, psychotic disturbance, mood disturbance, and anxiety Status: Acute Assessment and Plan: continue donepezil (3) Parkinsons disease: Code(s): G20 - Parkinson's disease Status: Acute Assessment and Plan: continue primidone (4) Hypertension: Qualifiers: Hypertension type: essential hypertension Qualified Code(s): I10 - Essential (primary) hypertension Code(s): I10 - Essential (primary) hypertension Status: Acute Assessment and Plan: patient has been started on Coreg and losartan he is also on nitroglycerin infusion (5) Hypercholesteremia: Code(s): E78.00 - Pure hypercholesterolemia, unspecified Status: Acute Assessment and Plan: Crestor Plan DVT prophylaxis - currently on heparin drip Stress ulcer prophylaxis - PPI Nutrition - NPO Code Status - Full Code Case discussed with Cardiology Total Critical Care Time - 35 minutes Due to a high probability of clinically significant, life threatening deterioration, the patient required my highest level of preparedness to intervene emergently and I personally spent this critical care time directly and personally managing the patient. This critical care time included obtaining a history; examining the patient; pulse oximetry; ordering and review of studies; arranging urgent treatment with development of a management plan; evaluation of patient's response to treatment; frequent reassessment; and discussions with other providers. It was exclusive of separately billable procedures and treating other patients and teaching time. Please see Assessment and Plan section and the rest of the note for further information on patient assessment and treatment Open Developer Operator Consult Note Consult date: 05/27/22 Reason for consult: STEMI HPI: Trell Amin is a 86 year old male with past medical history of hypertension and hyperlipidemia who presented to ER with chief complaint of chest pain. Patient states that chest pain has been going on and off for last many days but mostly resolved by itself. This morning when he was sitting in the chair the chest pain reoccurred and he could not bear it anymore hence presented to ER. he states pain is in the middle of the chest, 7/10 severe, achy in quality, radiated to both shoulders. he denied any fever cough nausea vomiting palpitations dizziness lightheadedness or any other related complaints. he denies any PND orthopnea dyspnea on exertion lower extremity swelling. he presented to ER and was diagnosed with ST segment elevation FL and was taken to cardiac catheterization lab. Patient underwent cardiac catheterization where he had a complicated LAD occlusion which is only partially treated. patient now admitted to ICU. He continues to have chest pain and states his pain is
--- NOTE | 2022-05-27 08:43 | PM.IMHP ---
H&P: HPI History of Present Illness Date/Time: 05/27/22 08:43 Chief Complaint: chest pain Narrative: this is an 86-year-old man who is unknown to me prior to this emergency. He comes in to [facility] emergency room early this morning with chest pain that began about 2 hours before presentation. He has no previous cardiac history. ECG shows sinus rhythm with right bundle branch block and acute anterior wall WI. In this setting STEMI was activated. The records indicate that the patient has hypertension dyslipidemia and dementia. He is reporting mild ongoing chest pain as he has been brought into the cardiac catheterization lab. There is no time to take further history. Review of Systems Review of Systems: ROS unobtainable: Yes unobtainable due to medical condition PMFSH Past Medical History Medical History BPH (benign prostatic hyperplasia) Cataracts, bilateral Diverticulosis Gall bladder disease GERD (gastroesophageal reflux disease) H/O: HTN (hypertension) History of inguinal hernia Hx of hemorrhoids Hypercholesteremia Hypertension Neuropathy Parathyroid adenoma Peripheral neuropathy Squamous cell carcinoma of skin of left cheek Tremor Ulcer Surgical History Surgical History History of appendectomy History of cholecystectomy History of colonoscopy History of hernia repair History of inguinal hernia repair x3. History of parathyroid surgery History of throat surgery History of tonsillectomy S/P TURP Family History Family History Sibling Family history of cardiovascular disease Mother Cerebrovascular accident, Onset Age: 83 Father Family history of malignant neoplasm, Onset Age: 76 Family history of malignant neoplasm of bone, Onset Age: 76 Sibling , 93 Alzheimer disease Social History Social History Social History: Patient does not drink caffeine or energy drinks. Smoking status: Never smoker Second hand tobacco smoke exposure: No Alcohol intake: never Substance use: never Substance use type: does not use Living arrangements: with family Additional living arrangements comments: Patient is Occupation/Education: retired Gender identity (if verbalized by the patient): Male Sexual Orientation (if Verbalized by the Patient): Straight or Heterosexual Spiritual care concerns: No Meds Home Medications and Allergies Home Medications Medication Instructions Recorded Confirmed Type tamsulosin 0.4 mg capsule 0.4 mg PO QHS 09/02/20 03/03/21 History amlodipine 10 mg tablet 10 mg PO DAILY 05/27/22 05/27/22 History donepezil 10 mg tablet 10 mg PO DAILY 05/27/22 05/27/22 History losartan 100 mg tablet 50 mg PO DAILY 05/27/22 05/27/22 History primidone 50 mg tablet 50 mg PO Q12H 05/27/22 05/27/22 History Allergies Allergy/AdvReac Type Severity Reaction Status Date / Time No Known Allergies Allergy Verified 03/09/22 13:48 Vital Signs Vital Signs - 24 hr 05/27/22 05:46 05/27/22 06:07 05/27/22 06:00 Pulse Rate 75 75 Respiratory Rate 23 H 18 Blood Pressure 126/66 120/73 Pulse Oximetry 100 100 100 Oxygen Delivery Room Air Nasal Cannula Oxygen Flow Rate 2 05/27/22 06:15 05/27/22 08:31 Pulse Rate 72 83 Respiratory Rate 15 Blood Pressure 122/71 117/73 Pulse Oximetry 100 Oxygen Delivery Oxygen Flow Rate Exam Const: General: in distress and uncomfortable Other: Elderly man reporting [id number] chest pain HENMT: Mouth: Yes moist mucous membranes Eyes: Sclera: sclerae normal Pupils: Equal, round and reactive pupils present Neck: Neck: supple and no JVD Other: carotid pulses are intact no bruits are audible over the neck Resp: Effort & Inspection: normal respiratory effort Auscul
--- NOTE | 2022-05-27 08:46 | WPDCARDPROC ---
Cardiac Cath Procedure Note Date of procedure:: 05/27/22 Performing physician:: Scott Gan MD Indication:: ST-elevation UT Brief clinical history:: this is an 86-year-old man presenting with chest pain about 2 hours prior to presentation. He has hypertension and dyslipidemia. No previous for coronary history. ST segment anterior wall UT was found on presenting ECG. He is being brought for emergency angiography in this setting Procedure Procedure performed:: emergency coronary angiography emergency PTCA of LAD Sedation/Medication given:: fentanyl 25 mg Versed 2 mg case start time 6:55 a.m. case end time 7:47 a.m. sedation provided by Mayuri Barker RN. trained observer Access site:: right femoral artery Estimated blood loss:: 50 cc Procedure note:: patient was brought to the cardiac catheterization lab in the emergency setting described above the right femoral triangle was prepared and draped in the normal fashion. Anesthesia was given 1% lidocaine infiltrated locally. Using modified Seldinger technique a 6 Somali sheath was placed into the right femoral artery after this I used a 5 Somali JR4 catheter to engage and inject the right coronary artery. I then used a 6 Somali CLS 3.5 guiding catheter to engage and inject the left coronary artery in multiple projections. Following this the cineangiograms were reviewed and PCI of the LAD was recommended and carried out as detailed below. Patient had received aspirin and 180 mg of Brilinta in the emergency room. Procedural anticoagulation was provided with bolus and infusion of bivalirudin. Following intervention the right groin sheath was sutured into position he was taken to the ICU in a critical condition. He was systemically heparinized a started on intravenous nitroglycerin. Findings:: Central aortic pressure is 146/84. The left ventricle was not entered during this procedure the left main coronary artery is moderate caliber and appears to be patent there is left main and proximal left coronary calcification identified the left anterior descending is a moderate caliber artery extending down to the apex. The proximal/ ostial segment of the LAD has a 95% stenosis that is relatively discrete. The mid to distal portion of the LAD is 1 100% occluded angiographic appearance is typical of an abrupt acute thrombotic occlusion. The circumflex is a moderate caliber artery giving rise to marginal branches. The circumflex has mild diffuse luminal irregularities but no angiographically significant lesions are seen. Right coronary artery is moderate caliber and dominant to the posterior circulation. Right coronary artery also has diffuse mild luminal irregularities with at atherosclerotic plaquing but no flow-limiting disease is identified. Intervention: The LAD was wired using a 0.014 BMW coronary guidewire. I used a 3.5 x 20 mm PTCA balloon to traverse the distal /mid to distal occlusion and a series of inflations were made restoring PABLO 2 flow into the LAD down to the apex. Distal to the site of occlusion the remainder of the LAD done at the apex is angiographically quite small. I then attempted to deliver a stent to this lesion but the stent would not track through the high-grade proximal segment of the artery this stent was withdrawn. It was clear that the ostial disease which was very tight would not permit the stent device to traverse more distally. I then used a 3.0 x 15 mm balloon to dilate the ostial segment of the LAD. A inserting this balloon into the LAD ostium was somewhat difficult as the LAD had an angulated takeoff from the left main there appeared to be a moderate amount of calcium. With deep running the guide I was able to dilate this lesion with the above-described balloon. Three inflations were made at nominal pressures resulting in improved angiographic appearance but at least 60% resume residual stenosis in the LAD at the ostium.
[2022-05-27] MEDS: POTASSIUM CHLORIDE 20 MEQ TABLET 40 MEQ PO (08:54)
[2022-05-27] MEDS: LOSARTAN POTASSIUM 25 MG TABLET PO (08:55)
[2022-05-27] MEDS: ROSUVASTATIN 10 MG TABLET 20 MG PO (08:55)
[2022-05-27] MEDS: HEPARIN SOD/D5W 100 UNITS/ML 25,000 UNITS/250 ML BAG 10 UNITS IV CONT (08:55)
[2022-05-27] MEDS: carvediloL 6.25 MG TABLET PO (08:56)
[2022-05-27] MEDS: PANTOPRAZOLE SODIUM IV 40 MG VIAL IV PUSH (08:58)
[2022-05-27] MEDS: KCL 20MEQ/0.9% SOD CHL 1,000 ML 100 ML IV CONT (09:06)
[2022-05-27] MEDS: TAMSULOSIN HCL 0.4 MG CAPSULE PO (09:06)
[2022-05-27 09:09] LABS: INR 2.5; Prothrombin Time 25.9 Seconds (11.1-14.7)
[2022-05-27 09:10] LABS: Partial Thromboplastin Time 80.5 SECONDS (22.3-36.8)
[2022-05-27 09:36] LABS: NT Pro B Type Natriuretic Pept 136 pg/mL (19.9-100)
--- NOTE | 2022-05-27 10:16 | PC.NURSE ---
Cardiopulmonary Rehab Services flyer was given to patient.
[2022-05-27] MEDS: PERFLUTREN LIPID MICROSPHERES 1.5 ML VIAL DILUTED TO 10 ML TOTAL VOLUME IV PUSH (10:30)
[2022-05-27 11:57] LABS: Glucose Point of Care 151 mg/dl (65-105)
--- NOTE | 2022-05-27 14:07 | PC.NURSE ---
1407--Ritu LANDRUM at [facility] called and updated that patient returned to [place] ER in respiratory distress. [facility] nurses station number is [phone]. Pt. is going to room 592A.
--- NOTE | 2022-05-27 15:08 | PC.NURSE ---
1335-Pt. transferred out of room with [facility] on stretcher on 6LNC. VSS. Transfer paperwork sent with ems. Patient stable upon discharge.
--- NOTE | 2022-06-22 07:12 | PM.TDS ---
Transfer Discharge Sum: Prov Provider Date of admission: 05/27/22 05:56 Primary care physician: Scott Ribera MD Admitting clinician: Scott Gan MD Consults: 05/27/22 Consult to Physician Routine Comment: Consulting Provider: Brett Dave Reason for consultation: icu admission Has provider been notified: Yes 05/27/22 05:52 Consult to Physician Routine Comment: Consulting Provider: Scott Gan on call/MD group to consult: Science Instructor health management consultant Reason for consultation: Stemi Has provider been notified: Yes 05/27/22 07:59 Cardiopulmonary Rehabilitation Consult Routine Comment: Consult Plan: Evaluate for Eligibility Attending physician on discharge: Scott Gan Discharging clinician: Scott Gan Anticipated date of transfer: 05/27/22 Receiving physician/facility: [facility] DS: Admitting Diagnosis Discharge Date 05/27/[address] segment elevation ME DS: Discharge Diagnosis Discharge Diagnosis (1) Acute ST elevation myocardial infarction: Code(s): I21.3 - ST elevation (STEMI) myocardial infarction of unspecified site Status: Acute Assessment and Plan: 86-year-old patient presenting with chest pain and acute anterior ST segment elevation ME. patient underwent partially successful PCI in the trestle mainternance laborer at [facility] but with inability to successfully stent to the target lesion in the mid LAD because of high-grade ostial stenosis which could not be successfully treated this trestle mainternance laborer. Plan Transfer to [facility] for more advanced PCI of the ostial LAD disease as well as the site of the target lesion in the midportion of the vessel Transfer Discharge Sum: Med Medications Active and Home Medications: Home Medications tamsulosin 0.4 mg capsule 0.4 mg PO QHS 09/02/20 [History Confirmed 05/27/22] amlodipine 10 mg tablet 10 mg PO DAILY 05/27/22 [History Confirmed 05/27/22] primidone 50 mg tablet 50 mg PO Q12H 05/27/22 [History Confirmed 05/27/22] donepezil 10 mg tablet See Rx Instructions .Route .COMPLEX #90 tabs 06/09/22 [Rx] losartan 100 mg tablet See Rx Instructions .Route .COMPLEX #90 tabs 06/09/22 [Rx] Transfer Discharge Sum: Hosp Hospital Course Hospital course: Trell Amin is a 86 year old male who presented to [facility] on the date of admission with chest pain. Electrocardiogram showed sinus rhythm with right bundle branch block and acute anterior wall ME. he was brought emergently to the cardiac catheterization lab where he was found to have a culprit lesion being total occlusion of the mid segment of the left anterior descending. Patient also had a high-grade ostial LAD stenosis and and angulated takeoff of the LAD from the left main coronary which was also somewhat calcified. The anterior descending was easily wired through the occlusion down to the apex. The target lesion was then dilated with a balloon angioplasty restoring flow into the LAD down to the apex. The target lesion could not be stented to complete satisfactory intervention as there was high-grade ostial disease in the LAD that prohibited advancing a stent to the target area. Following that the ostial segment of the LAD was balloon dilated which was done with some difficulty because of angulated takeoff of the LAD as well as difficulty getting balloons to track into the vessel for these reasons. The high-grade ostial lesion was improved to about 60% residual stenosis this was however not felt to be a acceptable final angiographic result. For that reason the patient was systemically heparinized the sheath was left into position he was transferred to [facility] where more aggressive/advanced PCI capabilities will be used to attempt to complete this intervention. Time Spent with Patient Time attestation: Total time spent providing and/or coordinating transfe
== END 2022-05-27 13:35 | disposition short-term general hospital (02) | DRG 251 ==
LOC: ANHED 07:25 → ANHICU 08:05
PROVIDERS: Internal Medicine; Admitting Provider Specialist; Emergency Provider Emergency Medicine; PCP Emergency Medicine; Visit Provider Specialist
PROC: 02703ZZ Dilation of Coronary Artery, One Artery, Percutaneous Approach (ICD-10-PCS; CPT 92920; 2022-05-27 06:40)
PROC: 02703ZZ Dilation of Coronary Artery, One Artery, Percutaneous Approach (ICD-10-PCS; CPT 93454; 2022-05-27 06:40)
DX: I21.02 ST elevation (STEMI) myocardial infarction involving left anterior descending coronary artery (principal); I10 Essential (primary) hypertension; E78.5 Hyperlipidemia, unspecified; N40.0 Benign prostatic hyperplasia without lower urinary tract symptoms; K57.90 Diverticulosis of intestine, part unspecified, without perforation or abscess without bleeding; K21.9 Gastro-esophageal reflux disease without esophagitis; G62.9 Polyneuropathy, unspecified; E78.00 Pure hypercholesterolemia, unspecified; G30.8 Other Alzheimer's disease; F02.80 Dementia in other diseases classified elsewhere, unspecified severity, without behavioral disturbance, psychotic disturbance, mood disturbance, and anxiety; G20 Parkinson's disease; Z85.828 Personal history of other malignant neoplasm of skin; Z90.49 Acquired absence of other specified parts of digestive tract
CPT/HCPCS: 36415; 71045; 80053; 80061; 82948; 83690; 83880; 84484; 85025; 85610; 85730; 86850; 86900; 86901; 92920; 93005; 93454; 99285; A9270; C1725; C1769; C1887; C1894; C8929; C9113; J0583; J1200; J1644; J2250; J2270; J2405; J3010; J3480; J7040; Q9957

== ENCOUNTER 2022-05-27 14:00 | Emergency (ER) | payer OTHER, SELFPAY ==
--- NOTE | ~2022-05-27 | XR_ITS ---
EXAMINATION: XR chest ET placement DATE: 05/27/2022 14:22 INDICATION: Intubation. TECHNIQUE: A single frontal view of the chest was obtained. COMPARISON: Chest one view 05/27/2022 FINDINGS: The left lateral costophrenic angle is excluded. There are interstitial opacities and hazy airspace opacities throughout the lungs bilaterally. No pneumothorax. The heart size is normal. The e ndotracheal tube tip is 3.2 cm above the joey. The nasogastric tube tip is in the stomach. IMPRESSION: 1. Worsened diffuse lung disease, likely moderate pulmonary edema. Reviewed, dictated and finalized at location A. CIATE PROFESSOR OF BIOSTATISTICS
[2022-05-27 14:00] VITALS: BP 148/119; PULSE 112; RESP 14; O2SAT 99
--- NOTE | 2022-05-27 14:03 | PC.NURSE ---
1403 20mg Etomidate given IVP 1403 100mg succinylcholine given IVP 1406 ET tube inserted, 24cm at the lip, 7.5 size ET tube 16FR NG tube placed in the right nare, 70cm depth.
[2022-05-27 14:09] VITALS: BP 126/85; PULSE 122; RESP 12; O2SAT 99
[2022-05-27 14:15] VITALS: BP 144/98; PULSE 116; PULSE 120; RESP 17; RESP 19; O2SAT 99
[2022-05-27] MEDS: PROPOFOL IV EMULSION 100 ML 10.19 MG IV CONT (14:15)
--- NOTE | 2022-05-27 14:21 | ED.GENADULT ---
HPI - General Adult General Chief complaint: Chest Pain Stated complaint: Resp distress Time Seen by Provider: 05/27/22 14:13 History of Present Illness HPI narrative: 86-year-old male presented to the emergency department via EMS after he began to desaturate during transport to [facility]. Patient was seen in the ED this morning and was diagnosed with a STEMI. Patient was just discharged from the ICU and was en route to [facility] when the crew stated that he had a critical desaturation, EMS had not left the parking lot. Patient was brought emergently into the emergency department and was in respiratory distress and was cyanotic. Related Data Home Medications Medication Instructions Recorded Confirmed tamsulosin 0.4 mg capsule 0.4 mg PO QHS 09/02/20 05/27/22 amlodipine 10 mg tablet 10 mg PO DAILY 05/27/22 05/27/22 donepezil 10 mg tablet 10 mg PO DAILY 05/27/22 05/27/22 losartan 100 mg tablet 50 mg PO DAILY 05/27/22 05/27/22 primidone 50 mg tablet 50 mg PO Q12H 05/27/22 05/27/22 Allergies Allergy/AdvReac Type Severity Reaction Status Date / Time No Known Allergies Allergy Verified 03/09/22 13:48 Review of Systems Review of Systems: ROS unobtainable: Yes unobtainable due to medical condition PMFSH Past Medical History Medical History (Updated 05/27/22 @ 20:33 by Eleuterio Freeman MD) BPH (benign prostatic hyperplasia) Cataracts, bilateral Diverticulosis Gall bladder disease GERD (gastroesophageal reflux disease) H/O: HTN (hypertension) History of inguinal hernia Hx of hemorrhoids Hypercholesteremia Hypertension Neuropathy Parathyroid adenoma Peripheral neuropathy Squamous cell carcinoma of skin of left cheek Tremor Ulcer Surgical History Surgical History History of appendectomy History of cholecystectomy History of colonoscopy History of hernia repair History of inguinal hernia repair x3. History of parathyroid surgery History of throat surgery History of tonsillectomy S/P TURP Family History Family History Sibling Family history of cardiovascular disease Mother Cerebrovascular accident, Onset Age: 83 Father Family history of malignant neoplasm, Onset Age: 76 Family history of malignant neoplasm of bone, Onset Age: 76 Sibling , 93 Alzheimer disease Social History Social History Social History: Patient does not drink caffeine or energy drinks. Smoking status: Never smoker Second hand tobacco smoke exposure: No Alcohol intake: never Substance use: never Substance use type: does not use Lack of Transportation: No Lack of Food: Never True Current Housing: I Have Housing Concerned About Future Housing: No Difficulty Paying Gas/Electric Bills: No Difficulty Paying for Meds: No Currently Unemployed: No Education: High School Diploma/GED Difficulty w/ Childcare or Family Care: No Living arrangements: with family Additional living arrangements comments: Patient is Occupation/Education: retired Gender identity (if verbalized by the patient): Male Sexual Orientation (if Verbalized by the Patient): Straight or Heterosexual Spiritual care concerns: No Exam Narrative: APPEARANCE: Ill-appearing and cyanotic HEAD: normocephalic, atraumatic. EYES: PERRLA/EOMI, conjunctivae clear. NOSE: Normal no drainage THROAT: Pharynx clear, no exudate. NECK: Supple. No adenopathy, no masses. RESPIRATORY: Agonal respirations, pulmonary congestion CARDIOVASCULAR: Regular rate and rhythm without murmurs rubs or gallops. ABDOMINAL: Soft, nontender, nondistended, normal bowel sounds MUSCULOSKELETAL: Moves all extremities. NEURO: Alert, grossly intact SKIN: Warm, dry. Normal Color. Cath sheath in right groin Course Course Emergency Course: Patient was emergen
[2022-05-27 14:51] LABS: Alveolar/Arterial O2 Gradient 552.5 mmHg; Base Excess ABG -10.6 mEq/l (+/-2.0); Fractional Inspired Oxygen 100 %; HCO3 ABG 21.1 mEq/l (22.0-26.0); Oxygen Content ABG 22.2 %vol (16.0-22.0); Oxygen Saturation ABG 92.5 % (95.0-100.0); Oxyhemoglobin 92.1 % THb (90.0-100.0); PO2 FiO2 Ratio Arterial Blood 0.88 %; Total Hemoglobin 17.1 g/dL (12.0-18.0)
[2022-05-27 14:52] LABS: pH ABG 7.082 (7.350-7.450)
[2022-05-27 14:53] LABS: Device VENTILATOR; Modified Allen's Test Pass; PCO2 ABG 72.5 mmHg (35.0-45.0); Site Drawn RIGHT RADIAL
[2022-05-27 14:54] LABS: Arterial Blood Gas PEEP 7 cmH2O; Arterial Blood Gas Tidal Volume 450 ml; Arterial Blood Gas Vent Mode CMV; Arterial Blood Gas Ventilator rate 16 /MIN
== END 2022-05-27 15:00 | disposition short-term general hospital (02) ==
PROVIDERS: Emergency Provider Emergency Medicine; PCP Emergency Medicine
DX: I21.3 ST elevation (STEMI) myocardial infarction of unspecified site (principal); R06.03 Acute respiratory distress; R09.89 Other specified symptoms and signs involving the circulatory and respiratory systems; I10 Essential (primary) hypertension; E78.00 Pure hypercholesterolemia, unspecified; K21.9 Gastro-esophageal reflux disease without esophagitis; G62.9 Polyneuropathy, unspecified; N40.0 Benign prostatic hyperplasia without lower urinary tract symptoms
CPT/HCPCS: 31500; 36600; 82805; 96365; 96366; 99291; J0330; J2704